=== PATIENT | female | born 1930 | race Caucasian/White ===

== ENCOUNTER 2017-04-20 11:06 | Observation (INO) | payer MEDICARE ==
[2017-04-20] VITALS (9 sets, daily range): BP systolic 114–141; BP diastolic 62–91; PULSE 63–78; RESP 16–20; TEMP 97.6–102.8; O2SAT 96–98
[~2017-04-20] VITALS: Ht 160 cm; Wt 68.7 kg
[~2017-04-20 11:06] MED LIST: AMLO10 PO; ATEN1TAB73 PO; BILB500C PO/GT; CALC500T19 PO; CYAN1000P IM; GLUC500C56 PO; LATA.005%O EACH EYE; LISI-363 PO; MILK500C PO; OMEP20CA5 PO; OXYB5TAB33 PO; OXYC-68 PO; PROB1TAB PO; STOO100T PO; TAB-TAB PO; TERA2CAP3 PO; TIMO.5%O EACH EYE; ULTR50TA PO; [UNRECOGNIZED DRUG - OTHER] PO
[2017-04-20] MEDS ORDERED: PANT20TA2 PO (11:40)
[2017-04-20] MEDS ORDERED: OXYB5TAB8 PO (11:40)
[2017-04-20] MEDS ORDERED: TERA2CAP3 PO (11:40)
[2017-04-20] MEDS ORDERED: LATA.005%O EACH EYE (11:40)
[2017-04-20] MEDS ORDERED: LISI-515 PO (11:40)
[2017-04-20] MEDS ORDERED: TIMO0.5S30 EACH EYE (11:40)
[2017-04-20] MEDS ORDERED: TRAM50TA PO (11:40)
[2017-04-20] MEDS ORDERED: ATEN25TA PO (11:40)
--- NOTE | 2017-04-20 11:44 | PD ---
HPI Chief Complaint: Abdominal Pain Time Seen by Provider: 11:20 Travel History International Travel<30 days: No Contact w/Intl Traveler<30days: No Traveled to known affect area: No History of Present Illness HPI seen by dr hebert last friday, who apparently diagnosed her with liver mass, and is currently awaiting appointment with heme onc doctor that is upcoming....starting around friday she started to have coughing that originally was mixed sputum and some bright red blood specks, now more solid hemoptysis? its unclear because patient also gags after coughing so unsure if its hematemesis or not, however it does not sound like patient has had an episode of vomiting yet received records from [facility] apr [address] abd/pelvis w/o contrast: moderate ascites, enhancing liver mass 4.2cm, right pelvis with 3.7 cm cystic mass in right pelvis, recommending further testing for mets v hepatocellular ca. chart and rn notes reviewed pcp:dr samuel alberto pmhx: htn, post polio syndrome, vw dz, breast ca in remission, skin ca in remission, hep c from transfusion pshx:masterctomy, hyst, appy, cholecystectomy PFSH Past Medical History Arthritis: Yes Asthma: No Autoimmune Disease: Yes Blood Disorders: Yes (HEP C) Anxiety: Yes Depression: Yes Heart Rhythm Problems: Yes Cancer: Yes (BREAST, SKIN) Cardiovascular Problems: Yes (MURMUR) High Cholesterol: Yes Chemotherapy: No Chest Pain: No Congestive Heart Failure: No COPD: No Cerebrovascular Accident: Yes (TIA) Coronary Artery Disease: Yes Diabetes: Yes Diminished Hearing: Yes (aides not in) Endocrine: No Gastrointestinal Disorders: Yes (CONSTIPATION) GERD: Yes Glaucoma: Yes Genitourinary: No Headaches: Yes Hepatitis: Yes ("C") Hiatal Hernia: Yes Hypertension: Yes Immune Disorder: No Kidney Stones: No Musculoskeletal: Yes Neurologic: Yes (POST POLIO SYNDROME) Psychiatric: No Reproductive: No Respiratory: No Immunizations Current: Yes Migraines: Yes Myocardial Infarction: No Radiation Therapy: No Renal Failure: No Seizures: No Sickle Cell Disease: No Sleep Apnea: No Thyroid Disease: No Ulcer: No Tetanus Vaccination: Unknown Influenza Vaccination: Yes ?: Not Menopausal: Yes Past Surgical History Abdominal Surgery: Yes (APPEND., RIGHT INGUINAL HERNIA REPAIR, STEPHANY.,) AICD: No Appendectomy: Yes Body Medical Devices: PLATE IN NECK Cardiac Surgery: No Cholecystectomy: Yes Ear Surgery: No Endocrine Surgery: No Eye Surgery: Yes (BILAT. CATARACT SX) Genitourinary Surgery: No Gynecologic Surgery: Yes (PARTIAL HYSTERECTOMY) Hysterectomy: Yes Joint Replacement: No Neurologic Surgery: Yes (CERVICAL SX,) Oral Surgery: Yes (LOWER PARTIAL DENTURE) Pacemaker: No Thoracic Surgery: Yes (LEFT BREAST BX X2) Other Surgery: Yes (HERNIA 1989, HYSTERECTOMY 1977, GALLBLADDER) Social History Alcohol Use: Yes (one daily vodka) Tobacco Use: No (QUIT 45 YRS AGO) Substance Use: No Allergies-Medications (Allergen,Severity, Reaction): Coded Allergies: Sulfa (Sulfonamide Antibiotics) (Unverified Allergy, Severe, Rash, ) INTERMEDIATE REACTION adhesive (Unverified Adverse Reaction, Severe, RED SKIN, 04/20/17) MILD REACTION Reported Meds & Prescriptions Reported Meds & Active Scripts Active Reported Timolol Opth Drops 0.5 % Soln 1 Drop EACH EYE DAILY Terazosin (Terazosin HCl) 2 Mg Cap 2 Mg PO HS Ditropan (Oxybutynin Chloride) 5 Mg Tab 5 Mg PO Q8HR Tramadol (Tramadol HCl) 50 Mg Tab 50 Mg PO Q4H PRN Pantoprazole (Pantoprazole Sodium) 20 Mg Tab 20 Mg PO DAILY Lisinopril 20 Mg Tab 20 Mg PO BID Xalatan Opth Drops (Latanoprost) 0.005% Drops 1 Drop EACH EYE HS Atenolol 25 Mg Tab 25 Mg PO DAILY Review of Systems General / Constitutional: No: Fever Eyes: No: Visual changes HENT: No: Headaches Cardiovascular: No: Chest Pain or Discomfort Respiratory: Positive: Cough, Hemoptysis Gastrointestinal: No: Abdominal Pain Genitourinary: No: Dysuria Musculoskeletal: No: Pain Skin: No Rash Neurologic: No: Weakness Psychiatric: No: Depression Endocrine: No: Polydipsia Hematologic/Lymphatic: No: Easy Bruising Physical Exam Narrative GENERAL: SKIN: Warm and dry. HEAD: Atraumatic. Normocephalic. EYES: Pupils equal and round. No scleral icterus. No injection or drainage. ENT: No nasal bleeding or discharge. Mucous membranes pink and moist. NECK: Trachea midline. No JVD. CARDIOVASCULAR: Regular rate and rhythm. RESPIRATORY: No accessory muscle use. Clear to auscultation. Breath sounds equal bilaterally. GASTROINTESTINAL: Abdomen soft, non-tender, distended with positive fluid wave MUSCULOSKELETAL: Extremities without clubbing, cyanosis, or edema. No obvious deformities. NEUROLOGICAL: Awake and alert. No obvious cranial nerve deficits. Motor grossly within normal limits. Five out of 5 muscle strength in the arms and legs. Normal speech. PSYCHIATRIC: Appropriate mood and affect; insight and judgment normal. Data Data Last Documented VS Vital Signs Date Time Temp Pulse Resp B/P (MAP) Pulse Ox O2 Delivery O2 Flow Rate FiO2 04/20/17 11:51 97 Room Air 04/20/17 11:12 97.6 78 18 128/71 (90) Orders Orders Electrocardiogram (04/20/17 11:29) Complete Blood Count With Diff (04/20/17 11:29) Comprehensive Metabolic Panel (04/20/17 11:29) Prothrombin Time / Inr (Pt) (04/20/17 11:29) Act Partial Throm Time (Ptt) (04/20/17 11:29) Lipase (04/20/17 11:29) Ct Abd/Pel W Iv Contrast(Rout) (04/20/17 11:29) Iv Access Insert/Monitor (04/20/17 11:29) Ecg Monitoring (04/20/17 11:29) Oximetry (04/20/17 11:29) Labs Laboratory Tests Test 04/20/17 11:45 [facility] Medical Decision Making Medical Screen Exam Complete: Yes Emergency Medical Condition: Yes Medical Record Reviewed: Yes Interpretation(s) nsr 66, nl intervals, no stemi pattern, pvc unifocal Differential Diagnosis pna v von willebrand dz v esophageal varices? Leonardo Ramirez MD Apr 20, 2017 11:44
[2017-04-20 11:54] LABS: AUTOMATED NEUTROPHIL # 3.8 TH/MM3 (1.8-7.7); BASOPHIL % 0.3 % (0.0-2.0); EOSINOPHIL % 0.8 % (0.0-4.0); HEMATOCRIT 35.1 % (35.0-46.0); LYMPHOCYTE # 0.9 TH/MM3 (1.0-4.8); MEAN CELL VOLUME 100.3 FL (80.0-100.0); MEAN CORPUSCULAR HEMOGLOBIN 32.9 PG (27.0-34.0); MEAN CORPUSCULAR HGB CONC 32.8 % (32.0-36.0); MONO % 9.7 % (0.0-8.0); NEUT % 71.2 % (16.0-70.0); RED BLOOD COUNT 3.51 MIL/MM3 (4.00-5.30); RED CELL DISTRIBUTION WIDTH 14.8 % (11.6-17.2); WHITE BLOOD COUNT 5.2 TH/MM3 (4.0-11.0)
[2017-04-20 12:02] LABS: HEMO FLAGS AUTO DIFF; PLATELET COUNT 78 TH/MM3 (150-450)
[2017-04-20 12:03] LABS: CHLORIDE 104 MEQ/L (98-107); POTASSIUM 3.9 MEQ/L (3.5-5.1); SODIUM (NA) 139 MEQ/L (136-145)
[2017-04-20 12:07] LABS: ANION GAP 5 MEQ/L (5-15); BLOOD UREA NITROGEN 22 MG/DL (7-18)
[2017-04-20 12:09] LABS: APTT (PATIENT) 33.5 SEC (24.3-30.1); INTERNATIONAL NORMALIZED RATIO 1.5 RATIO; PROTHROMBIN TIME - PATIENT 16.9 SEC (9.8-11.6)
[2017-04-20 12:10] LABS: ALT (GPT) 46 U/L (10-53); AST (GOT) 65 U/L (15-37); GLOMERULAR FILTRATION RATE 64 ML/MIN (>89)
[2017-04-20 12:12] LABS: TOTAL BILIRUBIN ADULT 2.2 MG/DL (0.2-1.0)
[2017-04-20 12:13] LABS: ALKALINE PHOSPHATASE 134 U/L (45-117)
[2017-04-20 12:18] LABS: PLATELET ESTIMATE SMEAR LOW (NORMAL); PLATELET MORPHOLOGY NORMAL (NORMAL); SCAN/DIFF AUTO DIFF CONFIRMED
[2017-04-20] MEDS: SODIUM CHLOR 0.9% 1000 ML INJ 1,000 ML IV SCH ×2 (13:28→17:28)
--- NOTE | 2017-04-20 15:15 | MH ---
cc: NIMA DEL REAL M.D. DATE OF ADMISSION: 04/20/2017 ADMITTING DIAGNOSIS: 1. Intermittent hematemesis. 2. Minimal anemia. 3. Cirrhosis of the liver. 4. Chronic hepatitis C. 5. History of gastroesophageal reflux disease. 6. Acquired Von Willebrand disease. 7. Thrombocytopenia. 8. Mild coagulopathy (increased INR) likely secondary to her cirrhosis of the liver. 9. Recent finding of hepatic nodule on the dome of the liver of questionable etiology. 10. Abnormal liver function tests. 11. Hypertension. 12. Diverticulosis. 13. Irritable bowel syndrome. 14. History of colon polyps. 15. Osteopenia. 16. Post polio syndrome. 17. History of neurogenic bladder / urinary incontinence. 18. Migraine headaches. 19. Cervical and lumbar disc disease. 20. B12 deficiency on chronic B12. 21. Arthritis. 22. Allergic rhinitis. HISTORY OF PRESENT ILLNESS: This is an 86-year-old white female who has a history of chronic hepatitis C since the 1970s and possibly contracted from a blood transfusion. She subsequently has developed likely cirrhosis of the liver. She in the last week has had some intermittent nausea and noticed some dark stool earlier in the week. She was seen on 04/15 by her terrazzo polisher, Dr. Neal. She had had an ultrasound as an outpatient and a CT scan. There was apparently a 2.5 cm nodule on the dome of liver on the ultrasound and some findings consistent with cirrhosis as well. She was recommended follow up with her oncologist, Dr. Martinez. The ultrasound also showed some prominent lymph nodes adjacent to the pancreas that were up at 1.8 cm in size that were nonspecific. She was put on pantoprazole 40 milligrams a day at Dr. Neal's orders but she states she only took the first dose yesterday. She has had some retching with bringing up some blood-tinged material and had a couple of episodes yesterday with an episode where she brought up a lot of blood today according to her. She has been a little constipated so not having regular bowel movements. No diarrhea. She last retched up some blood earlier today. She came to the emergency room. Her hemoglobin is only 11.5. Her vital signs have been stable. She is admitted for further evaluation. It should be noted that she does have thrombocytopenia due to her liver disease and also has had acquired Von Willebrand disease. Her INR was elevated at 1.5, possibly secondary to chronic liver disease. PAST MEDICAL HISTORY: 1. She is on medication for hypertension, urinary incontinence and neurogenic bladder. 2. She has had post polio syndrome and has been weak especially in her lower extremities for years and pretty much wheelchair-bound. She has some weakness in her left hand as well and atrophy of her thenar eminence for a long time. 3. She has had gastroesophageal reflux disease. 4. Cirrhosis of the liver. 5. Chronic hepatitis C. 6. She denies any heart attack, angina. She had a 2-D echocardiogram in 06/03/2011 that showed mild tricuspid regurgitation and moderate mitral regurgitation and aortic sclerosis without stenosis and an ejection fraction of 65%. 7. She has had depression in the past. 8. She has had chronic elevated liver enzymes and apparently an elevated alpha-fetoprotein. 9. She has irritable bowel syndrome. 10. She has had the recent detection of a liver nodule or mass. 11. She has had neurogenic bladder. 12. Urinary incontinence. 13. Osteopenia. 14. Thrombocytopenia. 15. Post polio syndrome. 16. She has had migraines for years. 17. She has had a history of colon polyps. 18. History of cancer of the left breast. She had part of her breast removed initially in 2012 and then had a recurrence in the same breast but a different type of cancer that was also surgically excised. She did not undergo any radiation or chemotherapy, declining that. 19. She has had no thyroid disease. No diabetes. Denies any kidney disease or congestive heart failure. 20. She has arthritis. 21. Allergic rhinitis. PAST SURGICAL HISTORY: 1. She has had cataract surgery on both eyes. 2. She had a lumpectomy of the right breast that was benign and then had the surgical excisions of the tumor from the left breast in 2013 and then later after a recurrence of cancer in that breast. 3. She has had a laparoscopic cholecystectomy. 4. Appendectomy. 5. Total abdominal hysterectomy. 6. She had neck surgery at C3-4 with titanium plate placed. 7. She had a right inguinal hernia repair in the 1960s. 8. She has had some basal cell carcinomas removed from the left leg and scalp. 9. Her last colonoscopy was 02/06/10 that showed diverticulosis and mild nonspecific chronic colitis. 10. An EGD on 05/29/10 showed gastritis. 11. She has had a D&C. ALLERGIES: 1. SULFA. MEDICATIONS: 1. Atenolol 25 milligrams a day. 2. Furosemide 20 milligrams. She does not use this daily. 3. Lisinopril 20 milligrams twice a day. 4. Oxybutynin 5 milligrams three times a day. 5. Terazosin 2 milligrams at night. 6. Tramadol for her arthritis pain and back pain. 7. Pantoprazole which was prescribed on 04/15/17 but just started it a couple of days ago and she is only on 40 milligrams a day. 8. She is on Latanoprost 0.005% one drop both eyes at night. 9. Timolol 0.5% one drop both eyes daily. FAMILY HISTORY: Her mother at 94 of basically failure to thrive. She also had heart disease, thyroid disease, depression, osteoporosis. Her father at 85 of CVA and had diabetes, heart failure, hypertension. SOCIAL HISTORY: She is . She lives alone. She is a retired medical file clerk. She quit smoking in 1973. She smoked for about 15 years prior to quitting. She does drink alcohol up to 3 ounces of Vodka a day. REVIEW OF SYSTEMS: GENERAL: She denies any fever or chills or sweats. She is a little bit weaker in the last few days. HEAD, EYES, EARS, NOSE, THROAT: Just an occasional runny nose. No sore throat. No hearing complaints. CARDIOVASCULAR: No chest pain, orthopnea, PAROXYSMAL NOCTURNAL DYSPNEA. PULMONARY: No cough, hemoptysis, wheezing. GASTROINTESTINAL: As mentioned. GENITOURINARY: No dysuria or hematuria. She does get incontinence. EXTREMITIES: Without increased swelling. NEUROLOGIC: She has had numbness in both her feet, weakness in her lower extremities from her post polio syndrome and has some weakness in her left hand. SKIN: Without rash. PHYSICAL EXAMINATION: GENERAL: Pleasant white female alert and oriented. VITAL SIGNS: Temperature 97.6, pulse 78, blood pressure 126/68, pulse ox 96%. She is on room air. HEAD, EYES, EARS, NOSE, THROAT: TMs clear. Pupils equal. Sclerae nonicteric. Nose without lesion. Mouth with torus palatinus. She has some lower dentures. She has several teeth missing on the top. She normally wears a partial denture up there but does not have it with her. NECK: Without jugular venous distention. No adenopathy. No thyromegaly. HEART: Regular rate and rhythm. No murmur heard. LUNGS: Clear. ABDOMEN: Soft. No significant tenderness. No rebound or guarding. EXTREMITIES: No edema. Pulses 2+ both feet. SKIN: Negative. NEUROLOGIC: Oriented x3. Motor with just some slight weakness in both lower extremities and left social services aide strength. LABORATORY DATA: Her BUN is 22, creatinine 0.84, glucose 122, total bilirubin is 2.2, AST high at 65, ALT 46, alkaline phosphatase 134, albumin 2.4, total protein 6.7, lipase 111, sodium and potassium normal. Coags: INR was1.5. White count 5.2, hemoglobin 11.5, MCV 100.3, platelets were low at 78,000. ASSESSMENT: As noted. PLAN: 1. We will put her on some IV Pantoprazole. 2. Will consult gastroenterology, Dr. Neal for possible EGD. 3. Monitor hemoglobin and hematocrit. 4. She appears to be hemodynamically stable at this time. 5. We will just use some SCDs and LENNOX hose for DVT prophylaxis. 6. She does have a relative coagulopathy due to her liver disease with a mild increase in INR and a low platelet count. 7. Will give her some IV fluids and keep her NPO for now other than her medications. MD JOSE Olson/ALLEGRA /2:34 PM /2:54 PM
[2017-04-20] MEDS ORDERED: traMADol HCL 50 MG TAB PO PRN (16:00)
[2017-04-20] MEDS: PANTOPRAZOLE SODIUM 40 MG VIAL IV PUSH SCH (17:27)
[2017-04-20 17:55] LABS: HEMATOCRIT 35.7 % (35.0-46.0)
[2017-04-20 17:59] LABS: REVIEW FLAG FINAL
[2017-04-20] MEDS: OXYBUTYNIN CHLORIDE 5 MG TAB PO SCH (21:13)
[2017-04-20] MEDS: LISINOPRIL 20 MG TAB PO SCH (21:13)
--- NOTE | 2017-04-20 21:23 | EKG ---
Date Performed: 04/20/2017 Time Performed: 11:39:24 PTAGE: 86 years EKG: Sinus rhythm WITH OCCASIONAL VENTRICULAR PREMATURE COMPLEXES BORDERLINE ECG PREVIOUS TRACING : 08/17/2013 11.30 No significant change from previous tracing noted. DOCTOR: Maco Ospina Interpretating Date/Time 04/20/2017 21:22:05
[2017-04-21] MEDS: SODIUM CHLOR 0.9% 1000 ML INJ 1,000 ML IV SCH (01:09)
[2017-04-21] MEDS: LATANOPROST 0.005% OPHT SOLN 2.5 ML BTL EACH EYE SCH ×2 (01:10→20:34)
[2017-04-21 04:00] VITALS: BP 146/69; PULSE 75; RESP 24; TEMP 97.3; O2SAT 95
[2017-04-21 06:05] LABS: AUTOMATED NEUTROPHIL # 3.1 TH/MM3 (1.8-7.7); BASOPHIL % 0.1 % (0.0-2.0); EOSINOPHIL # 0.1 TH/MM3 (0-0.4); HEMATOCRIT 31.6 % (35.0-46.0); LYMPH % 23.2 % (9.0-44.0); LYMPHOCYTE # 1.2 TH/MM3 (1.0-4.8); MEAN CELL VOLUME 100.7 FL (80.0-100.0); MEAN CORPUSCULAR HEMOGLOBIN 33.4 PG (27.0-34.0); MEAN CORPUSCULAR HGB CONC 33.2 % (32.0-36.0); MONO % 11.1 % (0.0-8.0); NEUT % 64.6 % (16.0-70.0); PLATELET COUNT 73 TH/MM3 (150-450); RED BLOOD COUNT 3.14 MIL/MM3 (4.00-5.30); RED CELL DISTRIBUTION WIDTH 14.4 % (11.6-17.2)
[2017-04-21 06:18] LABS: HEMO FLAGS AUTO DIFF
[2017-04-21 06:20] LABS: POTASSIUM 4.2 MEQ/L (3.5-5.1)
[2017-04-21 06:24] LABS: BICARBONATE 26.6 MEQ/L (21.0-32.0)
[2017-04-21 07:09] LABS: SCAN/DIFF AUTO DIFF CONFIRMED
--- NOTE | 2017-04-21 07:13 | HHI.PR ---
Subjective Remarks Patient apparently had episode of vomiting around midnight which contained bright red blood. Patient thought it was earlier in the evening however nurses aide reported that it was actually around midnight and she witnessed the event. No vomiting or hemoptysis since that time. Denies increased shortness of breath. Notes that she has been a little more weak of late. Patient actually lives alone and is considering having either a roommate or possible [facility] in the future. The latter would not be financially feasible at this point per patient report. Objective Vitals Vital Signs Date Time Temp Pulse Resp B/P (MAP) Pulse Ox O2 Delivery O2 Flow Rate FiO2 04/21/17 04:00 97.3 75 24 146/69 (94) 95 04/20/17 23:42 98.0 71 18 114/62 (79) 96 04/20/17 21:41 98.3 67 16 135/91 (106) 98 04/20/17 21:39 98.3 67 16 135/91 (106) 98 04/20/17 15:30 99.0 63 18 141/72 (95) 97 04/20/17 14:43 04/20/17 13:41 66 20 126/68 (87) 96 Room Air 04/20/17 12:41 68 20 127/82 (97) 97 Room Air 04/20/17 11:51 97 Room Air 04/20/17 11:12 97.6 78 18 128/71 (90) 97 GENERAL: Sleeping soundly, arouses to voice, recognizes me from previous inpatient care. No acute distress. SKIN: Somewhat xerotic. HEAD: Normocephalic. No petechiae or blood noted on oropharyngeal exam. EYES: No scleral icterus. No injection or drainage. NECK: Supple, trachea midline. No JVD or lymphadenopathy. CARDIOVASCULAR: Regular rate and rhythm without murmurs, gallops, or rubs. RESPIRATORY: Breath sounds equal bilaterally. Appears to engage in "belly breathing" GASTROINTESTINAL: Abdomen soft, non-tender, nondistended. Bowel sounds normal. MUSCULOSKELETAL: No cyanosis, or edema. BACK: No CVA tenderness. Result Diagram: 04/21/1751404/21/17514 Urinary Catheter: No Vascular Central Line Catheter: No A/P Problem List: (1) Hematemesis ICD Codes: K92.0 - Hematemesis Status: Acute Plan: GI to see patient today and hopefully perform EGD. Patient noted to have underlying coagulopathy with thrombocytopenia. I have encouraged her to stop alcohol use. I have again educated her to not use nonsteroidal anti-inflammatory medications. (2) Cirrhosis ICD Codes: K74.60 - Unspecified cirrhosis of liver Status: Chronic Plan: Possibly associated with chronic hep C and alcohol use. Follow with GI. Encouraged her to abstain from alcohol use. (3) Coagulopathy ICD Codes: D68.9 - Coagulation defect, unspecified Status: Chronic Plan: Platelets relatively stable and chronically suppressed. We'll continue to follow clinically and with CBC check. (4) GERD (gastroesophageal reflux disease) ICD Codes: K21.9 - GERD (gastroesophageal reflux disease) Status: Chronic Plan: Continue PPI. GI to see. (5) Acquired von Willebrand disease ICD Codes: D68.0 - Acquired von Willebrand disease Status: Chronic (6) Hypertension ICD Codes: I10 - Hypertension Status: Chronic Plan: Fair control here. Continue home care. (7) Alcohol use disorder, mild, in controlled environment ICD Codes: F10.99 - Alcohol use disorder, mild, in controlled environment Status: Chronic Plan: Patient reports that she drinks 1-2 shots of vodka on nearly a daily basis. She reports that she has undergone multiple days without alcohol use with no signs of withdrawal such as tremor or shakes or increased agitation. We 'll initiate CIWA protocol. (8) Liver nodule ICD Codes: K76.89 - Other specified diseases of liver Status: Acute Plan: Reportedly recently diagnosed on outpatient CT. She will follow-up with her oncologist. Discharge Planning Possibly discharge home later today or tomorrow morning. Problem Qualifiers (1) Hypertension: Qualified Codes: I10 - Essential (primary) hypertension Baron Mcdonald MD PhD Apr 21, 2017 07:13
[2017-04-21] MEDS ORDERED: FLUMAZENIL 0.5 MG/5 ML VIAL IV PUSH PRN (07:15)
[2017-04-21] MEDS ORDERED: LORazepam 2 MG/ML VIAL IV PUSH PRN ×4 (07:15)
[2017-04-21] MEDS ORDERED: LORazepam 1 MG TAB PO PRN (07:15)
[2017-04-21] MEDS ORDERED: LORazepam 2 MG TAB PO PRN (07:15)
[2017-04-21] MEDS: OXYBUTYNIN CHLORIDE 5 MG TAB PO SCH ×3 (07:31→21:05)
[2017-04-21 08:00] VITALS: BP 123/83; PULSE 74; RESP 14; TEMP 97.6; O2SAT 94
[2017-04-21] MEDS: TIMOLOL MALEATE 0.5% OPHT SOLN 5 ML BTL EACH EYE SCH (08:55)
[2017-04-21] MEDS: LISINOPRIL 20 MG TAB PO SCH ×2 (08:56→20:34)
[2017-04-21] MEDS: ATENOLOL 25 MG TAB PO SCH (08:56)
[2017-04-21 12:00] VITALS: BP 134/61; PULSE 66; RESP 16; TEMP 97.8; O2SAT 97
[2017-04-21 12:49] LABS: AUTOMATED NEUTROPHIL # 4.9 TH/MM3 (1.8-7.7); BASOPHIL % 0.3 % (0.0-2.0); EOSINOPHIL % 0.7 % (0.0-4.0); HEMATOCRIT 34.9 % (35.0-46.0); LYMPHOCYTE # 1.3 TH/MM3 (1.0-4.8); MEAN CELL VOLUME 101.3 FL (80.0-100.0); MEAN CORPUSCULAR HGB CONC 32.6 % (32.0-36.0); MONO % 9.6 % (0.0-8.0); NEUT % 70.4 % (16.0-70.0); PLATELET COUNT 92 TH/MM3 (150-450); RED BLOOD COUNT 3.44 MIL/MM3 (4.00-5.30); RED CELL DISTRIBUTION WIDTH 14.7 % (11.6-17.2); WHITE BLOOD COUNT 6.9 TH/MM3 (4.0-11.0)
[2017-04-21 12:51] LABS: HEMO FLAGS AUTO DIFF
[2017-04-21 13:04] VITALS: BP 146/92; PULSE 66; RESP 18; TEMP 97.8; O2SAT 96
[2017-04-21 13:39] LABS: PLATELET ESTIMATE SMEAR LOW (NORMAL); PLATELET MORPHOLOGY NORMAL (NORMAL); SCAN/DIFF AUTO DIFF CONFIRMED
--- NOTE | 2017-04-21 13:44 | PD.PROCEDR ---
GI Procedure PROCEDURE PERFORMED upper endoscopy INDICATION FOR PROCEDURE hematemesis, anemia, cirrhosis PROCEDURE: The procedure, risks and benefits were discussed with Ms. Vela and informed consent was obtained. Anesthesia sedated her with Diprivan. She was placed in the left lateral decubitus position. EGD: The Pentax videoscope was introduced through the oropharynx and advanced to the second portion of the duodenum under direct visualization. Retroflexion was performed in the stomach. FINDINGS: grade 2 esophageal variers sever gastropathy but no active bled gastritis Bx no done because of anticoagulation ESTIMATED BLOOD LOSS: none SPECIMENS REMOVED: none COMPLICATIONS: none IMPRESSION: grade 2 esophageal variers sever gastropathy but no active bled gastritis Bx no done because of anticoagulation no active bleed PLAN: ok to feed patient ok to DC home from GI stand FU with hematology could be done as inpatient or outpatient continue PPI beta brice as tolerated to reduce portal pressure Shashank Charles MD Apr 21, 2017 13:44
[2017-04-21] MEDS ORDERED: LACTATED RINGER'S 1000 ML IV PRN (13:45)
[2017-04-21] MEDS ORDERED: CHLORHEXIDINE GLUCONATE 2 % 1 PACK (2 CLOTHS) TOPICAL PRN (13:45)
[2017-04-21] MEDS ORDERED: POVIDONE IODINE 5% (ANTISEPSIS KIT) 4 APPLICATIONS EACH NARE PRN (13:45)
[2017-04-21] MEDS ORDERED: METOPROLOL TARTRATE 25 MG TAB PO PRN (13:45)
[2017-04-21] MEDS ORDERED: SODIUM CHLORID 0.9% 500 ML IV PRN (13:45)
--- NOTE | 2017-04-21 13:49 | MB ---
cc: CHELSI GALAVIZ M.D., CARMEN DATE OF CONSULTATION: 04/21/2017 DATE OF : [address] Flannery. REASON FOR CONSULTATION Hematemesis. Thank you for the consultation. HISTORY OF PRESENT ILLNESS An 86-year-old lady with multiple medical problems including cirrhosis, hepatitis C and von Willebrand syndrome. The patient had some nausea with retching and she brought up some blood. She thinks she coughed it but it could also be related to the GI tract. The patient has not have any symptoms since she came in. She is followed as an outpatient by Dr. Neal who is working with her because of a nodule in her liver that may need biopsy. Dr. Neal sent the patient to Dr. Martinez for further work-up with her von Willebrand syndrome to see if a biopsy can be performed. The patient also has a nodule in her lymph nodes about 1.8 cm next to the pancreas. The patient denied any other problems. She had mild anemia. No other complaints. PAST MEDICAL HISTORY 1. Urinary incontinence with neurogenic bladder. 2. Hypertension. 3. Polio. 4. Chronic liver disease with hepatitis C and cirrhosis. 5. Von Willebrand syndrome. 6. Aortic sclerosis without stenosis. 7. Liver nodules, questionable etiology, being worked up by Dr. Neal. 8. Osteopenia. 9. Thrombocytopenia. 10.Migraine headaches. 11.History of colon polyps. 12.History of breast cancer. 13.Allergic rhinitis. 14.Arthritis. ALLERGIES Allergy to SULFA. MEDICATIONS Reviewed in the chart. PAST SURGICAL HISTORY 1. Lumpectomy. 2. Cataract surgery. 3. Cholecystectomy. 4. Appendectomy. 5. Hysterectomy. 6. C4-C3 surgery with plate placement. 7. Inguinal hernia repair. 8. Endoscopy and colonoscopy. 9. D&C. FAMILY HISTORY The patient's father had diabetes, CVA and hypertension. SOCIAL HISTORY No smoking for many years. No drugs. She still drinks vodka on a daily basis. REVIEW OF SYSTEMS All 12-point is negative except HPI. PHYSICAL EXAMINATION GENERAL: Alert and oriented, in no acute distress at this time. VITAL SIGNS: Stable. HEENT: Pupils are round and reactive to light. NECK: Supple. No JVD. CHEST: Clear to auscultation and percussion. CARDIAC: Regular rate and rhythm. No murmur or gallop. ABDOMEN: Soft, nondistended, nontender. Positive bowel sounds. No hepatosplenomegaly. EXTREMITIES: No edema, clubbing or cyanosis. NEUROLOGIC: Alert and oriented. Some weakness on the left side. PSYCH: Psychologically appropriate. LABORATORY White count 6.9, hemoglobin 11.4, platelets 92. INR 1.5. Total bilirubin 2.2, AST 65, ALT 46, alk phos 134. ASSESSMENT AND PLAN An 86-year-old lady with: 1. Elevated liver function tests, mostly a combination of alcohol/cirrhosis and hepatitis C. Work-up is being done for a nodule versus mass in the dome of the liver. This can be done as an outpatient after consulting with Dr. Martinez for her von Willebrand syndrome. 2. Mild anemia with questionable hematemesis. Will plan on doing an upper endoscopy; could be Racheal-Reddy tear, could be gastritis or esophagitis. Discussed with the patient the procedure and complications. She is agreeable to have it done. This will be done today. 3. Further plan depends on the findings on endoscopy. MD DIEGO Houston/RJ /1:18 PM /1:39 PM
[2017-04-21] MEDS: PANTOPRAZOLE SODIUM 40 MG VIAL IV PUSH SCH (15:07)
[2017-04-21 16:00] VITALS: BP 128/58; PULSE 71; RESP 16; TEMP 98.2; O2SAT 97
[2017-04-21 20:00] VITALS: BP 169/77; PULSE 78; RESP 18; TEMP 99.2; O2SAT 94
[2017-04-21] MEDS ORDERED: TERAZOSIN HCL 1 MG CAP PO SCH (21:00)
[2017-04-22] VITALS: BP 127/65; PULSE 69; RESP 18; TEMP 98.2; O2SAT 95
[2017-04-22] MEDS: SODIUM CHLOR 0.9% 1000 ML INJ 1,000 ML IV SCH (01:35)
[2017-04-22] MEDS: OXYBUTYNIN CHLORIDE 5 MG TAB PO SCH ×2 (05:37→14:16)
--- NOTE | 2017-04-22 07:26 | HHI.PR ---
Subjective Remarks No more vomiting or hematemesis. No hemoptysis. She does have a dry cough but overall feeling better. She has underlying postpolio syndrome and has significant weakness in her lower extremities. This weakness has been worse over the last week or so and she has not been doing her exercises at home. She does live alone which presents a problem as far as mobility and safety issues in the home. She is agreeable to short-term rehabilitation but understands that she may need longer term placement. She has a daughter that lives close by and checks on her regularly but has been unwilling to live with her or have her move in at her residence per patient report Objective Vitals Vital Signs Date Time Temp Pulse Resp B/P (MAP) Pulse Ox O2 Delivery O2 Flow Rate FiO2 04/22/17 00:00 98.2 69 18 127/65 (85) 95 04/21/17 20:00 99.2 78 18 169/77 (107) 94 04/21/17 16:00 98.2 71 16 128/58 (81) 97 04/21/17 14:13 98.0 62 16 118/53 (74) 97 04/21/17 13:55 98.0 64 16 107/48 (67) 96 04/21/17 13:04 97.8 66 18 146/92 (110) 96 04/21/17 12:00 97.8 66 16 134/61 (85) 97 04/21/17 08:00 97.6 74 14 123/83 (96) 94 GENERAL: Sleeping soundly, arouses to voice, alert and oriented. SKIN: Somewhat xerotic with few areas of purpura on forearms. HEAD: Normocephalic. EYES: No scleral icterus. No injection or drainage. NECK: Supple, trachea midline. No JVD or lymphadenopathy. CARDIOVASCULAR: Regular rate and rhythm with soft 2/6 systolic ejection murmur in aortic space. No rubs. RESPIRATORY: Breath sounds equal bilaterally. Appears to engage in "belly breathing" which is chronic per patient report. GASTROINTESTINAL: Abdomen soft, non-tender, nondistended. Bowel sounds normal. MUSCULOSKELETAL: No cyanosis, or edema. BACK: No CVA tenderness. Result Diagram: 04/21/17 1233 04/21/17 0515 Procedures EGD performed April 21 demonstrated grade 2 varices with severe gastropathy and gastritis but no active bleeding. Urinary Catheter: No Vascular Central Line Catheter: No A/P Problem List: (1) Hematemesis ICD Codes: K92.0 - Hematemesis Status: Acute Plan: EGD performed yesterday revealed gastropathy, gastritis and grade 2 varices, but no active bleeding. She's had no more episodes of hematemesis in approximately the last 30 hours. Vitals and hemoglobin relatively stable. Patient noted to have underlying coagulopathy with thrombocytopenia. I have encouraged her to stop alcohol use. I have again educated her to not use nonsteroidal anti-inflammatory medications. (2) Cirrhosis ICD Codes: K74.60 - Unspecified cirrhosis of liver Status: Chronic Plan: Possibly associated with chronic hep C and alcohol use. Follow with GI. Encouraged her to abstain from alcohol use. We'll switch her from atenolol to Inderal in hopes of further decompressing the biliary tract. (3) Coagulopathy ICD Codes: D68.9 - Coagulation defect, unspecified Status: Chronic Plan: Platelets relatively stable and chronically suppressed. We'll continue to follow clinically and with CBC check. (4) GERD (gastroesophageal reflux disease) ICD Codes: K21.9 - GERD (gastroesophageal reflux disease) Status: Chronic Plan: Continue PPI. EGD as noted above. (5) Acquired von Willebrand disease ICD Codes: D68.0 - Acquired von Willebrand disease Status: Chronic Plan: Continue to monitor for bleeding. Stop alcohol use. Avoid NSAIDs. (6) Hypertension ICD Codes: I10 - Hypertension Status: Chronic Plan: Fair control here. Continue home care with the exception of switching atenolol to Inderal. (7) Alcohol use disorder, mild, in controlled environment ICD Codes: F10.99 - Alcohol use disorder, mild, in controlled environment Status: Chronic Plan: Patient reports that she drinks 1-2 shots of vodka on nearly a daily basis. She reports that she has undergone multiple days without alcohol use with no signs of withdrawal such as tremor or shakes or increased agitation. We 'll initiate CIWA protocol. (8) Liver nodule ICD Codes: K76.89 - Other specified diseases of liver Status: Acute Plan: Reportedly recently diagnosed on outpatient CT. She will follow-up with her oncologist. She is not desiring to be overly aggressive in pursuit of this abnormality. Discharge Planning Plan discharge to rehabilitation today. Problem Qualifiers (1) Hypertension: Qualified Codes: I10 - Essential (primary) hypertension Baron Mcdonald MD PhD Apr 22, 2017 07:26
[2017-04-22] MEDS ORDERED: PROP20TA3 PO (07:29)
--- NOTE | 2017-04-22 07:36 | HHI.DS ---
Discharge Summary Admission Date Apr 20, 2017 at 12:58 Discharge Date: Apr 22, 2017 Admitting Diagnosis HEMATEMESIS (1) Hematemesis Diagnosis: Principal ICD Codes: K92.0 - Hematemesis Status: Acute (2) Cirrhosis Diagnosis: Secondary ICD Codes: K74.60 - Unspecified cirrhosis of liver Status: Chronic (3) Coagulopathy Diagnosis: Secondary ICD Codes: D68.9 - Coagulation defect, unspecified Status: Chronic (4) GERD (gastroesophageal reflux disease) Diagnosis: Secondary ICD Codes: K21.9 - GERD (gastroesophageal reflux disease) Status: Chronic (5) Acquired von Willebrand disease Diagnosis: Secondary ICD Codes: D68.0 - Acquired von Willebrand disease Status: Chronic (6) Hypertension Diagnosis: Secondary ICD Codes: I10 - Hypertension Status: Chronic (7) Alcohol use disorder, mild, in controlled environment Diagnosis: Secondary ICD Codes: F10.99 - Alcohol use disorder, mild, in controlled environment Status: Chronic (8) Liver nodule Diagnosis: Secondary ICD Codes: K76.89 - Other specified diseases of liver Status: Acute [facility], Dr. Ivan Procedures EGD performed April 21 demonstrated grade 2 varices with severe gastropathy and gastritis but no active bleeding. Brief History This is an 86-year-old white female who has a history of chronic hepatitis C since the 1970s and possibly contracted from a blood transfusion. She subsequently has developed likely cirrhosis of the liver. She in the last week has had some intermittent nausea and noticed some dark stool earlier in the week. She was seen on 04/15 by her project assistant, Dr. Neal. She had had an ultrasound as an outpatient and a CT scan. There was apparently a 2.5 cm nodule on the dome of liver on the ultrasound and some findings consistent with cirrhosis as well. She was recommended follow up with her oncologist, Dr. Martinez. The ultrasound also showed some prominent lymph nodes adjacent to the pancreas that were up at 1.8 cm in size that were nonspecific. She was put on pantoprazole 40 milligrams a day at Dr. Neal's orders but she states she only took the first dose yesterday. She has had some retching with bringing up some blood-tinged material and had a couple of episodes yesterday with an episode where she brought up a lot of blood today according to her. She has been a little constipated so not having regular bowel movements. No diarrhea. She last retched up some blood earlier today. She came to the emergency room. Her hemoglobin is only 11.5. Her vital signs have been stable. She is admitted for further evaluation. It should be noted that she does have thrombocytopenia due to her liver disease and also has had acquired Von Willebrand disease. Her INR was elevated at 1.5, possibly secondary to chronic liver disease. CBC/BMP: 04/21/17 1233 04/21/17 0515 Significant Findings Laboratory Tests Test 04/20/17 11:45 04/20/17 17:42 04/21/17 05:15 04/21/17 12:33 Red Blood Count 3.51 MIL/MM3 (4.00-5.30) 3.14 MIL/MM3 (4.00-5.30) 3.44 MIL/MM3 (4.00-5.30) Hemoglobin 11.5 GM/DL (11.6-15.3) 10.5 GM/DL (11.6-15.3) 11.4 GM/DL (11.6-15.3) Mean Corpuscular Volume 100.3 FL (80.0-100.0) 100.7 FL (80.0-100.0) 101.3 FL (80.0-100.0) Platelet Count 78 TH/MM3 (150-450) 73 TH/MM3 (150-450) 92 TH/MM3 (150-450) Neutrophils (%) (Auto) 71.2 % (16.0-70.0) 70.4 % (16.0-70.0) Monocytes (%) (Auto) 9.7 % (0.0-8.0) 11.1 % (0.0-8.0) 9.6 % (0.0-8.0) Lymphocytes # (Auto) 0.9 TH/MM3 (1.0-4.8) Platelet Estimate LOW (NORMAL) LOW (NORMAL) Prothrombin Time 16.9 SEC (9.8-11.6) Activated Partial Thromboplast Time 33.5 SEC (24.3-30.1) Blood Urea Nitrogen 22 MG/DL (7-18) 22 MG/DL (7-18) Random Glucose 122 MG/DL (74-106) Albumin 2.4 GM/DL (3.4-5.0) Calcium Level 8.3 MG/DL (8.5-10.1) 7.9 MG/DL (8.5-10.1) Alkaline Phosphatase 134 U/L (45-117) Aspartate Amino Transf (AST/SGOT) 65 U/L (15-37) Total Bilirubin 2.2 MG/DL (0.2-1.0) Estimat Glomerular Filtration Rate 64 ML/MIN (>89) 82 ML/MIN (>89) Hematocrit 31.6 % (35.0-46.0) 34.9 % (35.0-46.0) Chloride Level 109 MEQ/L (98-107) Hospital Course Patient's vital signs remained stable throughout hospital course. Hemoglobin had slight goldie on initial hospital day but stabilized and remained stable throughout remaining course. Hemoglobin around 11 day of discharge. EGD revealed severe gastropathy and gastritis with no active bleeding. She was noted to have grade 2 varices. She is strongly encouraged to stop alcohol use and to avoid nonsteroidal anti- inflammatories. She has underlying postpolio syndrome and has grown weaker over the last week or so. I had physical therapy evaluate her in the hospital and she was too weak to stand independently for any prolonged period. She will therefore be discharged to rehabilitation at least for short-term stay but understands that she may need long-term placement. She will follow-up with her oncologist regarding the recently discovered liver nodule. She does not want to be overly aggressive in pursuit of this abnormality. Pt Condition on Discharge: Stable Discharge Disposition: Discharge to SNF Discharge Instructions DIET: Follow Instructions for: Heart Healthy Diet Activities you can perform: Weight Bearing as Marlon, See Additionl Instruction Other Activity Instructions: We'll be going to rehabilitation for further physical therapy and strengthening particularly of lower extremities. Follow up Referrals: Gastroenterology Oncology/Hematology PCP Follow-up New Orders: CBC WITH DIFF - 2-3 Days New Medications: Propranolol (Propranolol) 20 Mg Tab 20 MG PO Q8HR for PORTAL HYPERTENSION, #90 TAB 0 Refills Continued Medications: Latanoprost Opth Drops (Xalatan Opth Drops) 0.005% Drops 1 DROP EACH EYE HS for Glaucoma, #2.5 ML 0 Refills Lisinopril (Lisinopril) 20 Mg Tab 20 MG PO BID, #30 TAB 0 Refills Oxybutynin (Ditropan) 5 Mg Tab 5 MG PO Q8HR for Urinary Symptom Managemen, #90 TAB 0 Refills Pantoprazole (Pantoprazole) 20 Mg Tab 20 MG PO DAILY for Reflux, #30 TAB 0 Refills Terazosin (Terazosin) 2 Mg Cap 2 MG PO HS, #30 CAP 0 Refills Timolol Opth Drops (Timolol Opth Drops) 0.5 % Soln 1 DROP EACH EYE DAILY for Glaucoma, #1 BOTTLE 0 Refills Tramadol (Tramadol) 50 Mg Tab 50 MG PO Q4H PRN for PAIN, TAB 0 Refills Discontinued Medications: Atenolol (Atenolol) 25 Mg Tab 25 MG PO DAILY for Blood Pressure Management, #30 TAB Additional Information We have talked at length about possible long-term placement. We have also discussed possibility of hospice depending on her progression. She is quite comfortable with hospice if that is deemed appropriate and may request evaluation from such if her strength does not improve at rehabilitation. Baron Mcdonald MD PhD Apr 22, 2017 07:36
[2017-04-22] MEDS ORDERED: COLA100C5 PO (07:49)
[2017-04-22 08:00] VITALS: BP 180/78; PULSE 76; RESP 20; TEMP 97.4; O2SAT 97
[2017-04-22] MEDS: MAGNESIUM HYDROXIDE SUSP 30 ML CUP PO ONE ×2 (08:30→09:45)
[2017-04-22] MEDS ORDERED: DOCUSATE SODIUM 100 MG CAP PO SCH (09:00)
[2017-04-22] MEDS: TIMOLOL MALEATE 0.5% OPHT SOLN 5 ML BTL EACH EYE SCH (09:45)
[2017-04-22] MEDS: ATENOLOL 25 MG TAB PO SCH (09:45)
[2017-04-22] MEDS: LISINOPRIL 20 MG TAB PO SCH (09:45)
--- NOTE | 2017-04-22 10:05 | RADRPT ---
EXAM DATE/TIME: 04/22/2017 09:40 [facility] COMPARISON: No previous studies available for comparison. INDICATIONS : Cough, short of breath. MEDICAL HISTORY : Cardiovascular disease. Hypertension TIA, heart murmur SURGICAL HISTORY : None. ENCOUNTER: Initial ACUITY: 1 day PAIN SCORE: 0/10 LOCATION: Bilateral chest FINDINGS: A single view of the chest demonstrates marked hypoinflation bilaterally with some minimal bibasilar atelectatic changes especially above the left hemidiaphragm. Interstitial markings are somewhat promi nent but I believe this is due to the low lung volumes. Heart borders are partially obscured but the heart size appears to be normal accounting for the low lung volumes. Dextroscoliosis of the dorsal sp ine with associated degenerative changes. Anterior fixation of the lower cervical spine. CONCLUSION: 1. Hypoinflation with minimal bibasilar atelectatic changes but no confluent infiltrate. 2. Heart size appears to be normal West Love MD on April 22, 2017 at 10:00 Board Certified Radiologist. This report was verified electronically.
[2017-04-22 12:00] VITALS: BP 128/66; PULSE 70; RESP 18; TEMP 98.2; O2SAT 96
[2017-04-22] MEDS: PANTOPRAZOLE SODIUM 40 MG VIAL IV PUSH SCH (14:16)
[2017-04-22 16:00] VITALS: BP 139/70; PULSE 72; RESP 18; TEMP 97.8; O2SAT 96
--- NOTE | 2017-04-22 19:16 | HHI.GIFU ---
Subjective Remarks patient was seen and examined, she is doing ok, some SOB this am, no sign of GI bleed Objective Vitals I&O Vital Signs Date Time Temp Pulse Resp B/P (MAP) Pulse Ox O2 Delivery O2 Flow Rate FiO2 04/22/17 16:00 97.8 72 18 139/70 (93) 96 04/22/17 12:00 98.2 70 18 128/66 (86) 96 04/22/17 08:00 97.4 76 20 180/78 (112) 97 04/22/17 00:00 98.2 69 18 127/65 (85) 95 04/21/17 20:00 99.2 78 18 169/77 (107) 94 I/O 04/21/17 04/21/17 04/21/17 04/22/17 04/22/17 04/22/17 07:00 15:00 23:00 07:00 15:00 23:00 Intake Total 1081 ml 60 ml 1626 ml 275 ml 720 ml Balance 1081 ml 60 ml 1626 ml 275 ml 720 ml Intake Oral 240 ml 60 ml 480 ml 720 ml IV Total 841 ml 1146 ml 275 ml # Voids 1 2 2 4 2 2 # Bowel Movements 0 0 1 2 Physical Exam HEENT: Pupils round and reactive to light; normocephalic; atraumatic; no jaundice. Throat is clear. NECK: Neck is supple, no JVD, no lymphadenopathy. CHEST: Chest is clear to auscultation and percussion. CARDIAC: Regular rate and rhythm with no murmur gallop or rubs. ABDOMEN: Soft, nondistended, nontender; no hepatosplenomegaly; bowel sounds are present in all four quadrants. EXTREMITIES: No clubbing, cyanosis, or edema. SKIN: Normal; no rash; no jaundice. DEVELOPMENT EXPERT: No focal deficits; alert and oriented times three. Assessment and Plan Plan GI bleed, hematemesis, no sign of active bleed, EGD showed esophageal varices, gastropathy but no bleed, continue PPI, and B brice, HGB stable cirrhosis, stable, she will FU with Dr. Neal and hematology. as outpatient Shashank Charles MD Apr 22, 2017 19:16
== END 2017-04-22 17:30 ==
LOC: PHED 11:06 → PHEDA 12:58 → PH3A 14:48
PROVIDERS: ADMIT Legal Medicine; ATTEND Legal Medicine
DX: K92.0 Hematemesis (principal); K74.60 Unspecified cirrhosis of liver; I85.10 Secondary esophageal varices without bleeding; D64.9 Anemia, unspecified; K21.9 Gastro-esophageal reflux disease without esophagitis; D69.59 Other secondary thrombocytopenia; K29.70 Gastritis, unspecified, without bleeding; D68.0 Von Willebrand disease; F10.10 Alcohol abuse, uncomplicated; I10 Essential (primary) hypertension; R16.0 Hepatomegaly, not elsewhere classified; B18.2 Chronic viral hepatitis C; G14 Postpolio syndrome
CPT/HCPCS: 00740; 43235; 71010; 80048; 80053; 83690; 85014; 85018; 85025; 85610; 85730; 93005; 96361; 96374; 96376; 97110; 97163; 97530; 99285; C9113; G0378; G8987; G8988; J7030

== ENCOUNTER → 2017-04-30 | Day surgery (SDC) | payer MEDICARE ==
[~2017-04-30] MED LIST changes: -AMLO10 PO; -ATEN1TAB73 PO; -BILB500C PO/GT; -CALC500T19 PO; +COLA100C5 PO; -CYAN1000P IM; -GLUC500C56 PO; -LISI-363 PO; +LISI-515 PO; -MILK500C PO; -OMEP20CA5 PO; -OXYB5TAB33 PO; +OXYB5TAB8 PO; -OXYC-68 PO; +PANT20TA2 PO; -PROB1TAB PO; +PROP20TA3 PO; -STOO100T PO; -TAB-TAB PO; -TIMO.5%O EACH EYE; +TIMO0.5S30 EACH EYE; +TRAM50TA PO; -ULTR50TA PO; -[UNRECOGNIZED DRUG - OTHER] PO
[2017-04-30 11:05] VITALS: BP 106/68; PULSE 72; RESP 16; TEMP 98.6; O2SAT 100
--- NOTE | 2017-04-30 13:03 | RADRPT ---
EXAM DATE/TIME: 04/30/2017 10:41 [facility] COMPARISON: No previous studies available for comparison. EXTERNAL COMPARISON : [facility], CT ABDOMEN & PELVIS W & W/O CONTRAST April 11, 2017. INDICATIONS : Ascites. MEDICAL HISTORY : Glaucoma. TIA. Breast cancer. Hepatitis C. SURGICAL HISTORY : Hysterectomy. Appendectomy. Cholecystectomy. Lumpectomy. Inguinal hernia repair. ENCOUNTER: Initial ACUITY: 1 day PAIN SCORE: 0/10 LOCATION: Abdomen. AREA EVALUATED: Abdomen. FINDINGS: There is a nodular contour to the liver which may reflect cirrhosis. Mild ascites is present but no a dequate fluid is identified for paracentesis. CONCLUSION: 1. Mild ascites without window for paracentesis Hu Bob MD on April 30, 2017 at 13:01 Board Certified Radiologist. This report was verified electronically.
== END | disposition home or self-care (01) ==
LOC: HRAD 10:18
PROVIDERS: ATTEND Hospitalist
DX: R18.8 Other ascites (principal); B19.20 Unspecified viral hepatitis C without hepatic coma
CPT/HCPCS: 76705